=== PATIENT | female | born 1985 | race Caucasian/White ===

== ENCOUNTER 2016-08-11 19:56 | Emergency (ER) | payer OTHER ==
[~2016-08-11 19:56] MED LIST: ADVIL200 M2 PO; ANSAID100 MG PO; BACTRIM DS TABL1 TA1 PO; BENTYL10 MG PO; BENZONATATE; CIPRO PO; DEPAKOTE; DICLOFENAC; DICYCLOMINE HCL20 MG PO; FLEXERIL PO; FLEXERIL10 M1 PO; FLEXERIL10 MG PO; FOLIC ACID; FOLIC ACID1 MG PO; GABAPENTIN800 MG PO; NAPROSYN500 MG PO; NEURONTIN PO; NEURONTIN800 MG PO; PRENATAL VITAMI1 TA3 PO; SUDAFED60 MG; TEGRETOL PO; TRILEPTAL600 MG PO; ULTRAM PO; VOLTAREN75 MG PO
[2016-08-11 21:33] LABS: INFLUENZA A NEG (NEG); INFLUENZA B NEG (NEG)
== END 2016-08-11 21:55 | disposition home or self-care (01) ==
LOC: CFTX 19:56 → CED 19:56 → CFTX 21:13
PROVIDERS: Nurse Practitioner Family
DX: J06.9 Acute upper respiratory infection, unspecified (principal); Z88.5 Allergy status to narcotic agent; Z79.899 Other long term (current) drug therapy
CPT/HCPCS: 87651; 87804; 99283

== ENCOUNTER 2016-08-16 15:29 | Emergency (ER) | payer OTHER ==
--- NOTE | ~2016-08-16 | CR63 ---
[facility] A Service of [facility] RADIOLOGY TEXT RESULTS PATIENT: ISABELLA CHOUDHARY LOCATION: [facility] : [birth year] UNIT #: [id number] AGE: [address]: Juany Boyd SEX: F ORDER DR: [id number] [facility] [address] [facility]. [place], [place] [address] [id number] MR#: [id number] Acc #: [id number] NAME: ISABELLA CHOUDHARY : 1985 SEX: F STUDY DATE/TIME: 08/16/2016 16:08 UNIT: [facility] ROOM: STUDY DESCRIPTION: CR Chest 2 View Attending Physician: Juany Boyd P.A.-C. Ordering Physician: Juany Boyd P.A.-C. Primary Care Physician: Jose Conner M.D. MEDICAL IMAGING REPORT This report is preliminary unless electronic signature is present EXAM Chest PA and lateral, 08/16/2016 HISTORY Cough and chest congestion, bronchitis for 1 week. FINDINGS PA and lateral examination of the chest upright shows a good expansion of the parenchyma with a normal distribution of the pulmonary vascularity. There is no indication of congestion, effusion, infiltrate, tumor, or nodular density. The pleural reflections and diaphragmatic contours are normal. The cardiac silhouette and mediastinal anatomy is within normal limits. IMPRESSION Normal chest. Dictated by... All Dobson M.D. THIS IS AN ELECTRONICALLY VERIFIED REPORT All Dobson M.D. at 08/17/2016 10:35 AM ELIZABETH/carroll TD: 08/16/2016 23:16 JOB #: [id number] MEDICAL IMAGING REPORT Page 1 of 1 COPY
== END 2016-08-16 17:00 | disposition home or self-care (01) ==
LOC: CFTX 15:29 → CED 15:29 → CFTX 16:19
DX: J20.9 Acute bronchitis, unspecified (principal); R56.9 Unspecified convulsions; I10 Essential (primary) hypertension; Z88.5 Allergy status to narcotic agent; Z79.899 Other long term (current) drug therapy
CPT/HCPCS: 71020; 94640; 99283